=== PATIENT | female | born 1970 | race African-American/Black ===

== ENCOUNTER 2022-05-26 12:39 | Inpatient (IN) | payer MEDICAID, OTHER ==
[~2022-05-26] VITALS: Ht 154.9 cm; Wt 80.7 kg
[2022-05-26 16:37] LABS: BASOPHILS % 0.3 % (0.0-2.0); EOSINOPHILS % 1.8 % (0.0-5.0); HEMATOCRIT. 40.5 % (36.0-48.0); HEMOGLOBIN. 13.4 g/dL (12.0-16.0); LYMPHOCYTES % 45.8 % (20.0-50.0); MEAN CORPUSCULAR HEMOGLOBIN 30.5 pg (28.0-32.0); MEAN CORPUSCULAR VOLUME 92.4 fL (81.0-99.0); MEAN PLATELET VOLUME 9.8 fl (7.4-10.4); MONOCYTES % 6.8 % (2.0-8.0); NEUTROPHILS % 45.3 % (40.0-76.0); PLATELET 222 x1000/uL (130-400); RED BLOOD CELL COUNT 4.39 mill/uL (4.2-5.4); RED CELL DISTRIBUTION WIDTH 12.8 % (11.6-14.6)
[2022-05-26 16:47] LABS: PARTIAL THROMBOPLASTIN TIME 26.5 sec (23.4-31.0); PROTHROMBIN TIME 10.3 sec (9.6-11.0)
[2022-05-26 16:48] LABS: CHLORIDE 110 mEq/L (98-107)
[2022-05-27] MEDS ORDERED: POTASSIUM CHLORIDE 20MEQ TABLET SR PO SCH (10:00)
[2022-05-27] MEDS ORDERED: ONDANSETRON HCL 4MG/2ML INJ IV PRN (10:00)
[2022-05-27] MEDS ORDERED: ACETAMINOPHEN 325MG TABLET PO PRN (10:00)
[2022-05-27] MEDS: ASPIRIN 81MG TABLET PO SCH (10:54)
[2022-05-27] MEDS ORDERED: NITROGLYCERIN SPRAY/4.9GM CAN TL NR (11:45)
[2022-05-27] MEDS ORDERED: IOHEXOL-350 100 ML BOTTLE ONE (14:05)
[2022-05-27 15:31] LABS: *AMPHETAMINES SCREEN URINE NEGATIVE (NEGATIVE); *BARBITURATES SCREEN URINE NEGATIVE (NEGATIVE); *BENZODIAZEPINES SCREEN URINE NEGATIVE (NEGATIVE); *COCAINE SCREEN URINE NEGATIVE (NEGATIVE); CANNABINOID URINE SCREEN NEGATIVE (NEGATIVE); METHADONE URINE SCREEN NEGATIVE (NEGATIVE); OPIATES URINE SCREEN NEGATIVE (NEGATIVE); PHENCYCLIDINE URINE SCREEN NEGATIVE (NEGATIVE)
[2022-05-27 21:00] VITALS: BP 130/72
[2022-05-28] VITALS: BP 108/70
[2022-05-28 04:00] VITALS: BP 145/80
[2022-05-28 08:00] VITALS: BP 135/75
[2022-05-28] MEDS: ASPIRIN 81MG TABLET PO SCH (09:00)
[2022-05-28 11:20] VITALS: BP 135/75
== END 2022-05-28 13:20 | disposition home or self-care (01) | DRG 203 ==
LOC: ER 12:39 → EDBEDREQ 18:40 → MICUSO 21:15 → EDBEDREQ 21:19 → 7WST 05-27 22:41
PROVIDERS: ADMIT Internal Medicine; ATTEND Internal Medicine
DX: M94.0 Chondrocostal junction syndrome [Tietze] (principal); D72.819 Decreased white blood cell count, unspecified; E87.6 Hypokalemia; Z20.822 Contact with and (suspected) exposure to COVID-19; J45.909 Unspecified asthma, uncomplicated
CPT/HCPCS: 36415; 71045; 75571; 80053; 80305; 83880; 84484; 85025; 87426; 93005; 93306; 99285; C9803; Q9967